=== PATIENT | male | born 1940 | race Caucasian/White ===

== ENCOUNTER 2021-10-26 12:00 | Inpatient (IN) | payer MEDICARE ==
[~2021-10-26] VITALS: Ht 167.6 cm; Wt 68.9 kg
[2021-10-26 21:14] VITALS: BP 143/77; PULSE 103; TEMP 98.6
[2021-10-26 21:19] LABS: INR 1.5 (0.8-3.0); PROTHROMBIN TIME 16.5 SECONDS (9.7-12.8)
[2021-10-26 21:23] LABS: BASO % 0.1 % (0.0-2.0); GRAN # 8.9 K/mm3 (1.4-6.5); GRAN % 76.8 % (42.2-75.2); HEMATOCRIT 40.3 % (42.0-52.0); HEMOGLOBIN 13.6 g/dl (13.5-18.0); LYMPH # 1.5 K/mm3 (1.2-3.4); LYMPH % 13.2 % (20.0-51.0); MEAN CELL VOLUME 95 fl (80.0-100.0); MEAN CORPUSCULAR HEMOGLOBIN 32 pg (27.0-31.0); MEAN CORPUSCULAR HGB CONC 34 g/dl (33.0-37.0); MONO # 1.1 K/mm3 (0.1-0.6); MONO % 9.6 % (1.7-9.3); PLATELET COUNT 63 K/mm3 (130-400); RED BLOOD COUNT 4.26 M/mm3 (4.20-5.60); REDCELL DISTRIBUTION WIDTH-CV 14.4 % (11.5-14.5)
[2021-10-26 21:40] LABS: ALBUMIN 3.3 gm/dL (3.4-4.8); BILIRUBIN,TOTAL 0.9 mg/dL (0.2-1.2); CALCIUM 7.8 mg/dL (8.4-10.2); CREATININE, serum 1.66 mg/dL (0.72-1.25); POTASSIUM 3.6 mmol/L (3.5-4.5); TOTAL PROTEIN 5.8 gm/dL (6.2-8.1)
[2021-10-26 22:03] LABS: COLLECTION METHOD CATHETER
[2021-10-26 22:12] LABS: MUCOUS Present (NOT PRESENT); PH 6 (5-8); SQUAMOUS EPITHELIAL None Seen /hpf (0-10); URINE APPEARANCE Cloudy (CLEAR/HAZY); URINE BACTERIA Moderate (NONE SEEN); URINE BILIRUBIN Negative (NEGATIVE); URINE BLOOD 3+ (NEGATIVE); URINE CALCIUM OXALATE CRYSTAL Present (NOT PRESENT); URINE COLOR Amber (YELLOW); URINE GLUCOSE Negative (NEGATIVE); URINE KETONE Trace (NEGATIVE); URINE LEUKOCYTE ESTERASE 3+ (NEGATIVE); URINE NITRATE Positive (NEGATIVE); URINE PROTEIN(semi-quant) 2+ (NEGATIVE); URINE RBC 20-50 /hpf (0-2)
--- NOTE | 2021-10-26 22:46 | NUR ---
KIMBERLY PEMBERTON NOTIFED OF URINE RESULTS BACK APPEARS TO HAVE UTI- WILL LOOK AT PLACE ORDERS IF NEEDED
[2021-10-26] MEDS ORDERED: PROZAC 20MG20 MG PO (23:01)
[2021-10-26] MEDS ORDERED: RISPERDAL 0.5M0.5 MG PO (23:01)
[2021-10-26] MEDS ORDERED: NATURAL MAGNES200 MG PO (23:02)
[2021-10-26] MEDS ORDERED: MULTI-VITAMIN W1 TA2 (23:02)
[2021-10-26] MEDS ORDERED: DESYREL 100MG100 MG PO (23:03)
[2021-10-26] MEDS ORDERED: TRILEPTAL 300M300 MG PO (23:04)
[2021-10-26] MEDS ORDERED: SYNTHROID 0.0.025 MG PO (23:04)
[2021-10-26] MEDS ORDERED: TRILEPTAL 150M150 MG PO (23:05)
[2021-10-26] MEDS ORDERED: KLOR-CON20 MEQ PO (23:07)
[2021-10-26 23:42] VITALS: BP 147/72; PULSE 87; TEMP 98.5
--- NOTE | 2021-10-26 23:49 | NUR ---
ALERT TO SELF- PT HAS HX OF DEMENTIA. AT BEDSIDE FOR HX AND ASSESSMENT. CARDS HERE TO SEE WELL. ORDERS PLACED. PT WILL NEED CARDIAC CLEARANCE PRE SURG HE IS IN NEW ONSET OF AFIB. TELE ON. GERMAN IN. PAIN MED GIVEN. WILL INTERGRATE PACEMAKER IN AM. IV FLUIDS HUNG. UA SENT- UTI, ROCEPHIN STARTED. SIPPING ON WATER ONLY, NO APPEITITE TONIGHT. TEDS/SCD. CALL LIGHT WI REACH. BED IN LOW POSITION. MAG REPLACED.
[2021-10-27 04:17] VITALS: BP 150/69; PULSE 95; TEMP 98.5
[2021-10-27 06:40] LABS: HEMATOCRIT 41.5 % (42.0-52.0); HEMOGLOBIN 13.7 g/dl (13.5-18.0); MEAN CELL VOLUME 96 fl (80.0-100.0); MEAN CORPUSCULAR HEMOGLOBIN 32 pg (27.0-31.0); MEAN CORPUSCULAR HGB CONC 33 g/dl (33.0-37.0); MEAN PLATELET VOLUME 11.6 fl (7.4-10.4); PLATELET COUNT 65 K/mm3 (130-400); RED BLOOD COUNT 4.31 M/mm3 (4.20-5.60); REDCELL DISTRIBUTION WIDTH-CV 14.4 % (11.5-14.5)
[2021-10-27 07:09] VITALS: BP 135/64; PULSE 107; TEMP 98.2
--- NOTE | 2021-10-27 07:46 | NUR ---
SPOKE TO BASKET HAND WEAVER & MATT PEMBERTON ABOUT PATIENT BRAND OF PACEMAKER BI[employer], INTERIGATION UNAVALIABLE DUE TO NOT HAVING EQUIPMENT AVALIABLE
[2021-10-27 08:08] LABS: CALCIUM 8.5 mg/dL (8.4-10.2); CREATININE, serum 1.68 mg/dL (0.72-1.25); POTASSIUM 3.4 mmol/L (3.5-4.5)
--- NOTE | 2021-10-27 09:13 | NUR ---
Patient resting in bed. His supportive at bedside. Patient provided with hygiene, he was incontient of stool. Zapata cares given. Patient visable in pain after movement & repositioning. Prn morphine given. Breakfast ordered. Hospitalist rounded. No plans for OR today. I spoke to radiology senior technical support engineer aware echo is ordered. Will continue to monitor closely.
--- NOTE | 2021-10-27 10:28 | NUR ---
CALLED [facility] TOO SEE IF PATIETN PACEMAKER CAN BE INTEROGATED. INFORMATION PROVIDED, WILL AWAIT A RETRUN CALL
--- NOTE | 2021-10-27 10:30 | NUR ---
REP RETURNED CALL & THEY CAN TRY TO SEE PATIENT ON FRIDAY.
[2021-10-27 12:06] VITALS: BP 145/85; PULSE 104; TEMP 97.7
--- NOTE | 2021-10-27 13:10 | NUR ---
Patient repositioned in bed,lying on right side. Pillows used for positioning to offload coccyx. Zapata noted to have leaking, hand irrigation provided to prevent further leaking. Patient provided with oral care with mouth swabs. Refused lunch. Patient has gone home to the day. High fall risk followed. Will monitor.
--- NOTE | 2021-10-27 14:34 | NUR ---
Plan is to return home with Lina . SW called for assessment as patient is dx with dementia. reports that patients PCP is Dr. James Mcmahon. reports that the patient had a broken hip in the earlier part of the year and did not use the assisted devices that would help with mobility. reports that the patient moves slower and will manage and not use any devices. reports that the patient has a loop monitor for the pacemaker. Preferred pharmacy is [facility]. Dr. Koehler in [place]. Patient has a nurse who is coming into the home 3 days a week. reports that she wants her spouse home. Educated on services with care supports.
--- NOTE | 2021-10-27 14:55 | NUR ---
Spoke with Randi Kerns about anesthesia request for platlets & pt/inr lab(this was from [facility] nurse). Randi was going to speak to about this. Patient request in bed. Will monitor.
[2021-10-27 15:02] VITALS: BP 124/7; PULSE 87; TEMP 98.3
--- NOTE | 2021-10-27 16:23 | NUR ---
blood bank called and made aware of orders for platlets.
--- NOTE | 2021-10-27 17:02 | NUR ---
Patient repositioned in bed. heels floated. Ice pack to broken hip. Pericares provided. He is passing more flatus with smears of stool. Vazquez cathetor also having drainage, vazquez cares provided. When asked patient not interested in dinner. Will ask again shortly. Mg replacement per orders. Mara to right legs. Scds ble. Cms intact. Will monitor.
--- NOTE | 2021-10-27 17:11 | NUR ---
Spoke with blood bank the platlets in house have , they will order another unit for DEEPALI. I made him aware they are for surgery in am at 8am.
--- NOTE | 2021-10-27 17:54 | NUR ---
Patient resting in bed. Family at his side. He is more awake & alert. Dinner ordered. Warm blanket provided for comfort. Consent obtained by his .
[2021-10-27 23:19] VITALS: BP 109/60; PULSE 105; TEMP 97.9
[2021-10-28] VITALS (15 sets, daily range): BP systolic 105–155; BP diastolic 54–68; PULSE 77–95; TEMP 97.2–99
--- NOTE | 2021-10-28 04:00 | NUR ---
NOTIFIED SANG, ESCROW CLOSER, THAT PT HAS NOT REC'D PLATELET TRANSFUSION AND IS SCHEDULED FOR SURGERY THIS AM.
--- NOTE | 2021-10-28 04:30 | NUR ---
Pt has only had 50cc sludgy urine this 12 hrs out of vazquez and has urinated around catheter x2, day shift RN reported same yesterday. pt has IVF infusing @100cc/hr. premedicated with 2mg IV morphine, irrigated 18F catheter without any return, on second attempt got out mod size blood clot, at this point, RN removed catheter and replaced with 18F coude, no urine returned, balloon inflated with 10cc h20, however, pt c/o pain and discomfort, removed the 10cc and manipulated catheter in penis and attempted to reinflate, pt again c/o pain, on third attempt, moderate amt of bright red blood return in vazquez tube and around penis, no urine. bladder scan performed, showing no urine in bladder. NILAY Nava called to bedside to see pt. informed her that pt's ordered platelets have not arrived to hospital yet. Order placed to consult Urology, balloon inflated and cath secure placed on leg. pt tolerated procedure with minimal pain, able to rest afterwards. no further bleeding noted at this time.
[2021-10-28 06:53] LABS: BASO % 0.1 % (0.0-2.0); EOS % 0.1 % (0-4.0); GRAN # 9.6 K/mm3 (1.4-6.5); GRAN % 75.2 % (42.2-75.2); HEMOGLOBIN 12.4 g/dl (13.5-18.0); LYMPH # 1.7 K/mm3 (1.2-3.4); LYMPH % 13.5 % (20.0-51.0); MEAN CELL VOLUME 94 fl (80.0-100.0); MEAN CORPUSCULAR HEMOGLOBIN 32 pg (27.0-31.0); MEAN CORPUSCULAR HGB CONC 34 g/dl (33.0-37.0); MONO # 1.3 K/mm3 (0.1-0.6); MONO % 10.3 % (1.7-9.3); PLATELET COUNT 62 K/mm3 (130-400); RED BLOOD COUNT 3.94 M/mm3 (4.20-5.60); REDCELL DISTRIBUTION WIDTH-CV 14.2 % (11.5-14.5)
--- NOTE | 2021-10-28 07:00 | NUR ---
NOTIFIED NILAY WALTON THAT PT HAS NOT REC'D PLATELET TRANSFUSION THEY HAVE NOT ARRIVED FROM [place]. AM LAB RESULTS NOT IN YET.
--- NOTE | 2021-10-28 07:00 | NUR ---
NOTIFIED DR DUNCAN OF CONSULT ORDER AND REASON FOR CONSULT, WILL COME IN TO SEE PT
[2021-10-28 07:06] LABS: INR 1.5 (0.8-3.0); PROTHROMBIN TIME 16.9 SECONDS (9.7-12.8)
[2021-10-28 07:22] LABS: CALCIUM 7.6 mg/dL (8.4-10.2); CREATININE, serum 1.56 mg/dL (0.72-1.25); MAGNESIUM 2.2 mg/dL (1.6-2.6); POTASSIUM 3.7 mmol/L (3.5-4.5)
--- NOTE | 2021-10-28 07:40 | NUR ---
Pt resting with eyes closed during morning shirt report. Pts is present in the room, planning for surgery soon. Dr Gautam has been in to see pt, no new orders at this time. Output is clear yellow in vazquez bag. All questions from answered, pt is confused and is only following some commands.
[2021-10-28 07:42] LABS: TSH w REFLEX 1.232 uIU/mL (0.350-4.940)
--- NOTE | 2021-10-28 08:00 | NUR ---
Pt off the floor for surgery
--- NOTE | 2021-10-28 12:02 | NUR ---
Pt back from surgery. He is very sleepy and does not open his eyes when being spoken to. Was able to get him to open his mouth for a temperature. VSS. Pts present in the room. Platelets started at this time, will remain in room
--- NOTE | 2021-10-28 13:03 | NUR ---
Pt continues to do well, although still sleepy. He is waking more though. requesting that the potassium be given IV, called pharmacy to change. Platelets still infusing, no signs of reaction.
--- NOTE | 2021-10-28 14:28 | NUR ---
Pt continues to do well, tolerating heart healthy diet. States not having any pain. No needs verbalized, remains at bedside
--- NOTE | 2021-10-28 16:20 | NUR ---
PT UNABLE TO PERFORM IS
[2021-10-29] VITALS (7 sets, daily range): BP systolic 99–132; BP diastolic 54–67; PULSE 60–88; TEMP 97.3–99.5
[2021-10-29 06:03] LABS: BASO % 0.1 % (0.0-2.0); EOS % 0.2 % (0-4.0); GRAN # 5.8 K/mm3 (1.4-6.5); GRAN % 68.5 % (42.2-75.2); HEMOGLOBIN 12.1 g/dl (13.5-18.0); LYMPH # 1.5 K/mm3 (1.2-3.4); LYMPH % 18.2 % (20.0-51.0); MEAN CELL VOLUME 93 fl (80.0-100.0); MEAN CORPUSCULAR HEMOGLOBIN 32 pg (27.0-31.0); MEAN CORPUSCULAR HGB CONC 34 g/dl (33.0-37.0); MEAN PLATELET VOLUME 10.7 fl (7.4-10.4); MONO # 1.1 K/mm3 (0.1-0.6); MONO % 12.6 % (1.7-9.3); PLATELET COUNT 82 K/mm3 (130-400); RED BLOOD COUNT 3.82 M/mm3 (4.20-5.60); REDCELL DISTRIBUTION WIDTH-CV 14.4 % (11.5-14.5)
[2021-10-29 06:05] LABS: INR 1.6 (0.8-3.0); PROTHROMBIN TIME 17.9 SECONDS (9.7-12.8)
[2021-10-29 06:07] LABS: HEMATOCRIT 35.4 % (42.0-52.0)
[2021-10-29 06:20] LABS: CALCIUM 7.5 mg/dL (8.4-10.2); CREATININE, serum 1.51 mg/dL (0.72-1.25); POTASSIUM 4.2 mmol/L (3.5-4.5)
--- NOTE | 2021-10-29 07:35 | NUR ---
pt medicated with [place] x3 this shift for elevated FLACC scores, obvious signs of pain/discomfort with turning and repositioning. pt able to sleep in between cares. weaned pt from 2L to RA this shift. vazquez draining clear yellow urine. pills given in pudding or applesauce, pt requires constant ques to take a drink and swallow pills
--- NOTE | 2021-10-29 11:00 | NUR ---
Patient alert, confused. Unable to follow commands. LLE with incision dressing CDI. Pulses palpable to LLE, FWB. No s/s pain or discomfort.
--- NOTE | 2021-10-29 16:54 | NUR ---
Spoke with the patients who states she would like her to go to [facility]. Called and left a message for the DON and faxed referral information to [phone].
--- NOTE | 2021-10-29 20:00 | NUR ---
RN attempting to give pt HS oral meds, including [place] for pain, pt not following simple commands of open mouth, close mouth, take drink, etc, placed pills in applesauce, and pt swallowed first 3 pills with sip of water, second bite with pills, pt spit out at RN, became agitated, grabbed and held RN's arm, attempted to pull off gown and said he was "getting out of here", winced in pain when he attempted to move out of bed and laid back down, RN able to get remainder of pills down after several attempts.
[2021-10-30 04:07] VITALS: BP 153/80; PULSE 86; TEMP 97.6
[2021-10-30 07:00] VITALS: BP 122/71; PULSE 92; TEMP 97.5
[2021-10-30 07:03] LABS: INR 1.5 (0.8-3.0); PROTHROMBIN TIME 17.1 SECONDS (9.7-12.8)
[2021-10-30 07:05] LABS: CALCIUM 8.9 mg/dL (8.4-10.2); CREATININE, serum 1.45 mg/dL (0.72-1.25); POTASSIUM 4.3 mmol/L (3.5-4.5)
--- NOTE | 2021-10-30 07:11 | NUR ---
Pt medicated for pain x2 this shift, pt ate some ice cream @0400 and took pain pill without difficulty. turned and repositioned q2, vazquez patent/secure, saline lock present in LFA, report to SHANELLE Dutta
--- NOTE | 2021-10-30 07:30 | NUR ---
Shift assessment completed. Pt alert but only oriented to himself not place or time. C/O pain when elevating left leg rating @ 7/10. Gauze dressing on left hip CDI, Telemetry in place, vazquez intact draining clear daniel urine, FLORENCIO hose and SCDs removed. Reeducated on the use of the IS, will continue to work on getting to 2000mL tidal 10 times every hour.
[2021-10-30 08:04] LABS: HEMOGLOBIN 12.3 g/dl (13.5-18.0); MEAN CELL VOLUME 92 fl (80.0-100.0); MEAN CORPUSCULAR HEMOGLOBIN 32 pg (27.0-31.0); MEAN CORPUSCULAR HGB CONC 35 g/dl (33.0-37.0); MEAN PLATELET VOLUME 11.1 fl (7.4-10.4); PLATELET COUNT 86 K/mm3 (130-400); RED BLOOD COUNT 3.89 M/mm3 (4.20-5.60); REDCELL DISTRIBUTION WIDTH-CV 14.1 % (11.5-14.5)
[2021-10-30 08:07] LABS: HEMATOCRIT 35.6 % (42.0-52.0)
[2021-10-30 08:44] LABS: BAND 7 % (0-10); EOSINOPHIL 2 % (0-4); LYMPHOCYTE 18 % (20.0-51.0); NEUTROPHILS 64 % (42.0-75.2); PLATELET ESTIMATE DECREASED (NORMAL)
--- NOTE | 2021-10-30 09:20 | NUR ---
bone worker contacted [facility] who states that due to staffing shortages, they may not be able to accept but is willing to look over the referral information. Refaxed referral and Lakeshia will get back with me.
--- NOTE | 2021-10-30 09:31 | NUR ---
Several visit attempts; Mammal Control Agent left "Prayer card" so that patient will be aware of the availability of spiritual care at our hospital.
--- NOTE | 2021-10-30 09:38 | NUR ---
Referral made to [facility] as a second choice if [facility] cannot accept. reports that she has family here in town that she is able to stay with if he is accepted to [facility].
[2021-10-30 10:45] VITALS: BP 103/60; PULSE 126; TEMP 97.3
--- NOTE | 2021-10-30 14:35 | NUR ---
Lakeshia notifies me that [facility] is unable to accept due to staffing shortages. Annita with [facility] informed me that due to the patients mental status, they are unable to accept the patient. Message left for the patient's to discuss SNF options.
--- NOTE | 2021-10-30 16:20 | NUR ---
Spoke with the patient's about the possibility of sending a referral to [facility]. is not accepting of this as it is a halfway. Informed Lina that [facility] to [facility] cannot accept and they we need to come together to create a dc plan. Lina verbalizes that she has been in contact with "Melissa" the DON at [facility] and that they informed her that they would have a bed available tomorrow. NAI followed up with [facility] and spoke with Lakeshia who was in attendance at the above meeting. Lina was provided with the information that at this time they do not have a bed and that availability tomorrow in unlikely, however it is subject to change due to unforseen circumstances.
[2021-10-30 16:35] VITALS: BP 159/66; PULSE 90; TEMP 98.5
[2021-10-30 20:14] VITALS: BP 145/68; PULSE 87; TEMP 98.4
[2021-10-31] VITALS (8 sets, daily range): BP systolic 111–135; BP diastolic 49–79; PULSE 70–108; TEMP 97.8–98.6
--- NOTE | 2021-10-31 03:16 | NUR ---
Patient had restful night, no c/o pain, tolerating antibiotics, no c/o pain, vazquez draining per gravity w/o issue, confusion noted, easily redirectable, fall precautions in place, telemetry in use.
[2021-10-31 05:44] LABS: INR 1.5 (0.8-3.0); PROTHROMBIN TIME 17.2 SECONDS (9.7-12.8)
--- NOTE | 2021-10-31 07:30 | NUR ---
Shift assessment completed. Alert but not oriented to person, place, or time. C/O pain at left hip when doing physical therapy rating @ 5/10. Catheter securement device replaced, FLORENCIO hose removed, telemetry intact. Encouraged and educated on the use of the IS, got up to 1500mL tidal 10x will continue hourly. Required assistance eating breakfast, ate 100% of his oatmeal w/ brown sugar and only 20% of the eggs, potatoes and sausage.
[2021-10-31 08:19] LABS: BASO % 0.2 % (0.0-2.0); GRAN # 3.4 K/mm3 (1.4-6.5); GRAN % 60.4 % (42.2-75.2); HEMOGLOBIN 11.7 g/dl (13.5-18.0); LYMPH # 1.4 K/mm3 (1.2-3.4); LYMPH % 25.4 % (20.0-51.0); MEAN CELL VOLUME 92 fl (80.0-100.0); MEAN CORPUSCULAR HEMOGLOBIN 32 pg (27.0-31.0); MEAN CORPUSCULAR HGB CONC 34 g/dl (33.0-37.0); MEAN PLATELET VOLUME 10.6 fl (7.4-10.4); MONO # 0.8 K/mm3 (0.1-0.6); MONO % 13.6 % (1.7-9.3); PLATELET COUNT 94 K/mm3 (130-400); REDCELL DISTRIBUTION WIDTH-CV 13.6 % (11.5-14.5)
[2021-10-31 08:24] LABS: CALCIUM 7.9 mg/dL (8.4-10.2); CREATININE, serum 1.41 mg/dL (0.72-1.25)
--- NOTE | 2021-10-31 09:19 | NUR ---
UPDATED ALICJA PEMBERTON ON TELE REPORT.
--- NOTE | 2021-10-31 10:15 | NUR ---
Left hip incision site dressing change done using sterile technique. Incision site had no signs of drainage or swelling, wound edges well approximated. Applied 1 4x4 gauze and placed tegaderm on top.
[2021-10-31] MEDS ORDERED: ASPI325T6 PO (10:43)
[2021-10-31] MEDS ORDERED: OSCAL 500 TAB500 MG PO (10:44)
[2021-10-31] MEDS ORDERED: VITAMIN C500 MG PO (10:45)
--- NOTE | 2021-10-31 15:47 | NUR ---
Radio Announcer received a phone call from Lakeshia at [facility] who advised they still are not able to accept patient. SW attended clinical rounds with the team and Hosptialist contacted by phone to discuss recommendation for SNF. NAI followed up with patient's , Lina who is tearful about patient going to SNF, however verbalized understanding. Patient and 's preferences are 1) [facility] in [place] and 2)[facility]. SW gave referrals to both facilities. NAI contacted Lisa at [facility] who advised they can clinically accept, they just need authorization from patient's insurance, which is a Medicare Advantage Plan. NAI faxed clinicals to [facility] for review and approval. Lisa advised she spoke with [facility] and requested auth DEEPALI as patient is ready for discharge. Lisa reports they can take patient tomorrow once the insurance approves. Archana, with [facility] business office also made contact with patient's . NAI updated Hospitalist and patient's that plan will be for discharge to [facility] tomorrow.
--- NOTE | 2021-10-31 20:30 | NUR ---
Pt in bed, is alert to self. Has SL to left forearm, flushes well, IV antibiotic given. Takes HS meds without problem. Dressing to left hip D/I. Has been incontinent of urine. Bed alarm on.
[2021-11-01 04:04] VITALS: BP 129/74; PULSE 78; TEMP 98.4
--- NOTE | 2021-11-01 06:00 | NUR ---
TAKES SCHEDULED AM MED. HAS BEEN INCONTINENT OF URINE THIS SHIFT.
[2021-11-01 06:59] LABS: INR 1.5 (0.8-3.0); PROTHROMBIN TIME 16.4 SECONDS (9.7-12.8)
[2021-11-01 08:00] VITALS: BP 119/63; PULSE 45; TEMP 98.4
[2021-11-01] MEDS ORDERED: TYLENOL 325MG325 MG PO (08:56)
[2021-11-01] MEDS ORDERED: NORCO 325 MG-51 TAB PO (08:57)
[2021-11-01] MEDS ORDERED: MIRALAX PA17 GM/Dose PO (08:59)
--- NOTE | 2021-11-01 09:18 | NUR ---
PT EATING BREAKFAST, DENIES PAIN AT THIS TIME. PLAN ON DISCHARGE TO SKILLED LATER THIS AM. DRESSINGS TO LEFT HIP CDI WITH GAUZE AND TEGADERM INPLACE OVER INCISIONS.
--- NOTE | 2021-11-01 11:10 | NUR ---
PT TRANSFERED TO [facility].
--- NOTE | 2021-11-01 11:28 | NUR ---
CALLED REPORT TO [facility].
== END 2021-11-01 11:29 | DRG 481 ==
LOC: SURG 12:00
PROVIDERS: Internal Medicine; Nurse Anesthetist, Certified Registered; Orthopaedic Surgery; Physician Assistant; Student in an Organized Health Care Education/Training Program; ADMIT Internal Medicine
PROC: 0QS734Z Reposition Left Upper Femur with Internal Fixation Device, Percutaneous Approach (ICD-10-PCS; principal; 2021-10-28 08:00)
DX: S72.012A Unspecified intracapsular fracture of left femur, initial encounter for closed fracture (principal); N39.0 Urinary tract infection, site not specified; D61.818 Other pancytopenia; F32.A Depression, unspecified; E03.9 Hypothyroidism, unspecified; F01.50 Vascular dementia, unspecified severity, without behavioral disturbance, psychotic disturbance, mood disturbance, and anxiety; I48.0 Paroxysmal atrial fibrillation; E83.42 Hypomagnesemia; E87.6 Hypokalemia; Z66 Do not resuscitate; N18.30 Chronic kidney disease, stage 3 unspecified; M21.052 Valgus deformity, not elsewhere classified, left hip; B96.4 Proteus (mirabilis) (morganii) as the cause of diseases classified elsewhere; I49.3 Ventricular premature depolarization; Z20.822 Contact with and (suspected) exposure to COVID-19; W10.8XXA Fall (on) (from) other stairs and steps, initial encounter; Y93.89 Activity, other specified; Y92.009 Unspecified place in unspecified non-institutional (private) residence as the place of occurrence of the external cause; Z95.0 Presence of cardiac pacemaker; Z23 Encounter for immunization
CPT/HCPCS: 99223-AI; 99231-AI; 99232-AI; 99233-AI; 99239; A9284; C1713; J0690; J0696; J2250; J2270; J2370; J2405; J2704; J3010; J3475; J3480; J7030; P9035